=== PATIENT | female | born 2000 | race Caucasian/White ===

== ENCOUNTER 2018-12-25 12:54 | Emergency (ER) | payer OTHER ==
[2018-12-25 13:09] VITALS: BP 123/64
--- NOTE | 2018-12-25 13:42 | UC ---
Allergic Reaction HPI - HPI Summary HPI Summary: Legs, stomach, back and arms have hives since yesterday - History of Current Complaint Chief Complaint: UCRash Stated Complaint: RASH Time Seen by Provider: 12/25/18 13:34 Hx Obtained From: Patient Hx Last Menstrual Period: 12/24/13 ?: No Onset/Duration: Sudden Onset, Lasting Days Severity Initially: Mild Severity Currently: Mild Pain Intensity: 0 Character: Hives Aggravating Factor(s): Heat Alleviating Factor(s): Antihistamines Associated Signs And Symptoms: Positive: Rash - Allergies/Home Medications Allergies/Adverse Reactions: Allergies Allergy/AdvReac Type Severity Reaction Status Date / Time Penicillins Allergy Rash Verified 12/25/18 13:10 PMH/Surg Hx/FS Hx/Imm Hx Previously Healthy: Yes - Surgical History Surgical History: None - Family History Known Family History: Positive: Respiratory Disease - Social History Alcohol Use: Rare Substance Use Type: None Smoking Status (MU): Light Every Day Tobacco Smoker Type: eCigarettes - Immunization History Most Recent Influenza Vaccination: last year Most Recent Pneumonia Vaccination: NA Review of Systems All Other Systems Reviewed And Are Negative: Yes Skin: Positive: Rash Is Patient Immunocompromised?: No Physical Exam Triage Information Reviewed: Yes Appearance: Well-Appearing, Well-Nourished, Pain Distress Vital Signs: Initial Vital Signs Temp 98.1 F 12/25/18 13:04 Pulse 80 12/25/18 13:04 Resp 16 12/25/18 13:04 BP 123/64 12/25/18 13:04 Pulse Ox 99 12/25/18 13:04 Vital Signs Reviewed: Yes Eye Exam: Normal ENT Exam: Normal Dental Exam: Normal Neck exam: Normal Respiratory Exam: Normal Cardiovascular Exam: Normal Abdominal Exam: Normal Bowel Sounds: Positive: Present Musculoskeletal Exam: Normal Neurological Exam: Normal Psychological Exam: Normal Skin: Positive: Other - hives on legs, and arms and chest Allergic Reaction Course/Dx - Course Course Of Treatment: hx obtained, exam performed ,meds reviewed, treated for hives. - Differential Dx/Diagnosis Differential Diagnosis/HQI/PQRI: Urticaria Provider Diagnosis: Urticaria Discharge - Sign-Out/Discharge Documenting (check all that apply): Patient Departure All imaging exams completed and their final reports reviewed: No Studies - Discharge Plan Condition: Stable Disposition: HOME Prescriptions: predniSONE [Prednisone 20 MG TAB] 20 mg PO DAILY #18 tablet Patient Education Materials: Urticaria (ED) Referrals: Job Esparza MD [Medical Doctor] - Carmen Mercedes MD [Primary Care Provider] - Additional Instructions: 1. Take the prednisone as prescribed. 2. After the course of prednisone start a daily zyrtec or claritin antihistamine if they hives are still presenting. 3. Follow up with milk truck driver if the hives return. - Billing Disposition and Condition Condition: STABLE Disposition: Home
== END 2018-12-25 13:45 | disposition home or self-care (01) ==
LOC: UCEAST 12:54
DX: L50.9 Urticaria, unspecified (principal); F17.210 Nicotine dependence, cigarettes, uncomplicated; Z88.0 Allergy status to penicillin
CPT/HCPCS: 99202; G0463